=== PATIENT | female | born 1970 | race African-American/Black ===

== ENCOUNTER 2017-02-13 18:19 | Emergency (ER) | payer BC ==
[2017-02-13 22:54] VITALS: BP 105/58
== END 2017-02-13 22:54 | disposition home or self-care (01) ==
LOC: ED 18:19
DX: K59.00 Constipation, unspecified (principal); R10.9 Unspecified abdominal pain; K21.9 Gastro-esophageal reflux disease without esophagitis; I10 Essential (primary) hypertension; E66.9 Obesity, unspecified; K62.89 Other specified diseases of anus and rectum; Z79.899 Other long term (current) drug therapy; Z79.891 Long term (current) use of opiate analgesic
CPT/HCPCS: J1170; Q0162